=== PATIENT | female | born 1950 | race Caucasian/White ===

== ENCOUNTER → 2016-07-01 | Outpatient (CLI) | payer BC, SELFPAY ==
[~2016-07-01] MED LIST: ASPIRIN325 MG PO; BETAPACE (GENER80 MG PO; CALCIUM 600 +1 EA12 PO; COREG12.5 MG PO; EFFEXOR XR150 MG PO; FISH OIL 1,2001 EACH PO; IMDUR30 MG PO; NITROSTAT0.4 MG SL; ULTRAM50 MG PO; VITAMIN D1000 UNIT PO; ZESTRIL2.5 MG PO; ZOCOR40 MG PO
--- NOTE | ~2016-07-01 | ENPV ---
Vascular Lower Arterial Plethysmography Procedure Demographics Patient Name SARA ZHU Date of Study 07/01/2016 Patient Number [id number] Gender Female Date of 1950 Age 65 Visit Number [id number] Height Accession Number [id number] Weight Room Number BSA BMI Referring Lyn Vaughn MD Interpreting Sarthak Dempsey MD Physician Physician Physician Ordering Lyn Vaughn Statistics Professor Physician Health And Safety Coordinator Deena Muller, RT,RVT,RDCS Conclusions Summary Moderate arterial disease of left lower extremity. Vascular surgery Eval if having symptoms. Procedure Type of Study: Extremities Arteries:Lower Arterial Plethysmography, Segmental Pressure, Complete. Allergies - Other:(Altace, Tetracycline). Blood Pressure:Right arm 121/ mmHg. Patient Status:Routine. Study Location:Inpatient Portable. Velocities are measured in cm/s ; Diameters are measured in cm Pressures + ++--------+-----+----+--------+-----+ ! !!Right ! !Left! ! ! + ++--------+-----+----+--------+-----+ !Location !!Pressure!Ratio! !Pressure!Ratio! + ++--------+-----+----+--------+-----+ !Upper Thigh !!156 !1.29 ! !109 !0.9 ! + ++--------+-----+----+--------+-----+ !Lower Thigh !!139 !1.15 ! !110 !0.91 ! + ++--------+-----+----+--------+-----+ !Ankle !!137 !1.13 ! !102 !0.84 ! + ++--------+-----+----+--------+-----+ !Ankle PT !!124 !1.02 ! !93 !0.77 ! + ++--------+-----+----+--------+-----+ !DP !!125 !1.03 ! !83 !0.69 ! + ++--------+-----+----+--------+-----+ - Brachial Pressure:Right: 121. - FLAVIO:Right: 1.03.Left: 0.77. Impressions Right Impression Normal segmental pressure study on the right lower extremity. Left Impression Moderate arterial disease throughout left lower extremity with decreased waveforms and pressures . Signature dtt: ZAINAB GONZALEZ dtd: 07/01/16 1356 Physician Self Edit
== END | disposition disaster alternative care site (69) ==
LOC: GCAR 06-28 14:00
DX: I73.9 Peripheral vascular disease, unspecified (principal)

== ENCOUNTER 2016-07-11 06:24 | Outpatient (CLI) | payer BC, SELFPAY ==
[~2016-07-11] VITALS: Ht 154.9 cm; Wt 67.2 kg
--- NOTE | ~2016-07-11 | CATH ---
PATIENT'S NAME: SARA ZHU [facility] AGE: 65 Y [address] ROOM: [facility] [place] [place], [place] [address] LOCATION: GPCU ADMIT DATE: 07/11/2016 Invasive Cardiology DISCHARGE DATE: 07/12/2016 FAMILY PHYSICIAN: Reese Dumont MD ATTENDING PHYSICIAN: Roderick Nicholson PROCEDURES PERFORMED: Abdominal aortogram with runoffs Selective left iliac angiography with runoffs into the foot WELLNESS GUIDE of high grade superficial femoral artery stenosis with drug coated balloon PROCEDURE/FINDINGS: A 6F sheath was placed in the right femoral artery. A 6F angled tennis racket was used for abdominal aortography. Following this a 6F JR catheter was used for selective cannulation of the left common iliac artery. Runoff to the foot was carried out on the left side. Following this, patient underwent a percutaneous revascularization procedure which will be described separately below. Patient tolerated this procedure without difficulty. HEMODYNAMICS: Aortic pressure is 124/60. ABDOMINAL AORTOGRAM: Abdominal aortogram was carried out in AP dimension. This demonstrates single renal arterials supplied bilaterally. Infrarenal aorta shows mild plaquing. Right common iliac artery is patent. It is medium in caliber. No significant obstructive disease. Right internal iliac is patent. Right external iliac is patent without significant disease. Right femoral artery is patent. Right profunda is patent. Right superficial femoral artery is patent without significant stenosis. Right popliteal artery is patent. Right anterior tibial artery is patent. Right peroneal artery is patent to the level of the foot. Right posterior tibial artery shows slower flow but patency to the level of the foot. Left common iliac artery is patent. Left internal iliac artery is patent. Left external iliac artery is patent. Left femoral artery is patent. Left profunda is patent. PATIENT'S NAME: SARA ZHU [facility] AGE: 65 Y [address] ROOM: [facility] [place] [place], [place] [address] LOCATION: GPCU ADMIT DATE: 07/11/2016 Invasive Cardiology DISCHARGE DATE: 07/12/2016 FAMILY PHYSICIAN: Reese Dumont MD ATTENDING PHYSICIAN: Roderick Nicholson Left superficial femoral artery shows a 99% lesion at the bifurcation of the profunda followed by an eccentric 50% lesion in the proximal SFA; remainder of the superficial femoral artery is patent. Left popliteal artery is patent. TP trunk is patent. Left anterior tibial artery is patent with slower flow. Left peroneal artery is patent. Left posterior tibial artery is patent also with demonstrable slower flow. PERCUTANEOUS REVASCULARIZATION: The previously placed 6F sheath was exchanged for a 6F 45 cm sheath. Angiomax bolus and infusion was initiated. Next a 0.035 exchange length Glidewire was placed across the stenosis in the left superficial femoral artery. Balloon angioplasty was carried out with a drug coated balloon, that being a 4.0 x 40 impact admiral balloon. Following this a 5.0 x 40 impact admiral drug coated balloon was used. Serial inflations were carried out. This resulted in a residual stenosis of approximately 20%. Next wire and balloon were removed. A Perclose closure device was then deployed at the right arteriotomy site. CONCLUSION: 1. Single renal arterials supplied bilaterally. 2. Normal right-sided vasculature. 3. High-grade in the ostial left superficial femoral artery stenosis. 4. A drug coated balloon use for treatment of this stenosis. 5. Routine post Perclose for closure device. 6. MD LIZBETH ROBBINS/kevin /[id number] CC: Printer CARDIOPULMINARY dtt: 08/10/16 0814 Roderick Nicholson (cardio) dtd: 08/09/16 1450 [facility]
[2016-07-12 05:43] LABS: BASOPHIL % 0.1 %; EOSINOPHIL % 0.1 %; HEMATOCRIT 38.5 % (33.0-46.0); HEMOGLOBIN 13.1 g/dL (10.0-15.0); IMMATURE GRANULOCYTE % 0.4 %; LYMPHOCYTE # 1.5 K/uL (0.8-4.0); LYMPHOCYTE % 20.5 %; MCH 33.8 pg (27.0-34.0); MCV 99.2 fl (83.0-98.0); MONOCYTE # 0.8 K/uL (0.0-1.0); MONOCYTE % 10.9 %; MPV 9.8 fl (9.4-12.4); NRBC % 0 /100WBC (0-0.00); PLATELET COUNT 258 K/uL (150-450); RBC 3.88 M/uL (3.50-5.50); RDW-CV 13.1 % (11.9-14.6); WBC 7.3 K/uL (4.0-11.0)
[2016-07-12 06:01] LABS: ALBUMIN 3.4 gm/dL (3.5-5.0); BLOOD UREA NITROGEN 12 mg/dL (6-24); CALCIUM 8.8 mg/dL (8.5-10.5); CHLORIDE 112 mMol/L (96-110); CO2 25 mMol/L (22-32); CREATININE 0.8 mg/dL (0.5-1.1); ESTIMATED GFR (MDRD EQUATION) > 60; PHOSPHORUS 3.7 mg/dL (2.5-4.9); SODIUM 144 mMol/L (135-145)
== END 2016-07-12 08:07 | disposition disaster alternative care site (69) ==
LOC: GPCU 06:24 → GCAT 06:24 → GPCU 09:30 → GCAT 07-12 08:07
PROVIDERS: Internal Medicine Interventional Cardiology
PROC: B400YZZ Plain Radiography of Abdominal Aorta using Other Contrast (ICD-10-PCS; principal; 2016-07-11)
DX: I70.211 Atherosclerosis of native arteries of extremities with intermittent claudication, right leg (principal); I73.9 Peripheral vascular disease, unspecified
CPT/HCPCS: C1725; C1760; C1769; C1887; C1894; J0583; J1644; J2001; J2250; J3010; J7030